=== PATIENT | male | born 1970 | race Two or more races ===

== ENCOUNTER 2017-11-19 05:41 | Inpatient (IN) | payer BC ==
[~2017-11-19] VITALS: Ht 180.3 cm; Wt 111.1 kg
[2017-11-19] VITALS (10 sets, daily range): BP systolic 104–113; BP diastolic 59–69
[2017-11-19] MEDS ORDERED: CEFAZOLIN SODIUM/DEXTROSE,ISO 50 ML IV ONE (06:25)
[2017-11-19] MEDS ORDERED: HYDROMORPHONE INJ 2 MG/ML DISP.SYRIN ONE (06:52)
[2017-11-19] MEDS ORDERED: MIDAZOLAM HCL 2 MG/2ML VIAL ONE (06:52)
[2017-11-19] MEDS ORDERED: SUCCINYLCHOLINE CHLORIDE 20 MG/ML VIAL ONE (06:52)
[2017-11-19] MEDS ORDERED: ANESTHESIA TRAY IN PYXIS 1 EA TRAY MC ONE (06:55)
[2017-11-19] MEDS ORDERED: BACITRACIN 50000 UNITS/VIAL ONE (06:55)
[2017-11-19] MEDS ORDERED: MORPHINE SULFATE/PF 10 MG/10ML (1MG/ML) AMPUL ONE (07:02)
[2017-11-19] MEDS ORDERED: TRANEXAMIC ACID 3,000 MG in SODIUM CHLORIDE IRRIG SOLUTION 70 ML IR ONE (07:30)
--- NOTE | 2017-11-19 09:45 | NUR ---
RN MS ADMISSION INITIAL NOTES PATIENT ARRIVED ON MS 3W AT 0945. A/O X4, RESPIRATIONS ARE EVEN AND UNLABORED, NOT IN ANY ACUTE DISTRESS NOTED. VITAL SIGNS ARE WNL. DENIES ANY PAIN AT THIS TIME. ABDOMEN IS SOFT AND NONDISTENDED. DENIES BLADDER DISCOMFORT. CURRENTLY HAS A TRUJILLO CATH AND URINE IS DRAINING FREELY, FREE OF KINKS. URINE IS CLEAR/YELLOW. DENIES ANY PAIN AT THIS TIME. S/P SURGERY RIGHT HIP ARTHROPLASTY. ADRIANE NOTED TO RIGHT HIP W/ DRESSING INTACT. ORDERS FOR WOUND NURSE TO DO INITIAL DRESSING CHANGE ON Friday11/21/17. PT IS FULL CODE. REGULAR DIET. PERIPHERAL IV ACCESS TO L WRIST, DRESSING IS KEPT CLEAN AND DRY AND INTACT. ABLE TO REPOSITION SELF AND REMINDED PT TO REPOSITION Q2HRS TO PREVENT PRESSURE INJURY. EDUCATED PT RE: THE USE OF CALL LIGHT WHEN ASSISTANCE IS NEEDED. ALL NEEDS MET AND RENDERED AT THIS TIME AND WILL CONTINUE TO MONITOR THROUGHOUT SHIFT.
[2017-11-19] MEDS ORDERED: OXYC-133 PO (10:12)
[2017-11-19] MEDS ORDERED: RIVA10TA PO (10:12)
[2017-11-19] MEDS ORDERED: MAGNESIUM HYDROXIDE 30 ML UDC PO PRN (13:00)
[2017-11-19] MEDS ORDERED: ONDANSETRON HCL/PF 4 MG/2 ML VIAL IVP PRN (13:00)
[2017-11-19] MEDS ORDERED: ZOLPIDEM TARTRATE 5 MG TABLET PO PRN (13:00)
[2017-11-19] MEDS ORDERED: MAG HYDROX/AL HYDROX/SIMETH 30 ML UDC PO PRN (13:00)
[2017-11-19] MEDS ORDERED: Z GUARD REMEDY 2 OZ OINT TP PRN (13:00)
[2017-11-19] MEDS ORDERED: HYDROCODONE/APAP 5/325MG 1 EACH TABLET PO PRN (13:00)
[2017-11-19] MEDS ORDERED: SENNOSIDES 8.6 MG TABLET PO PRN (14:00)
[2017-11-19] MEDS ORDERED: BISACODYL SUPP (10 MG) 10 MG/SUPP.RECT SUPP.RECT RC PRN (14:00)
[2017-11-19] MEDS ORDERED: DOCUSATE SODIUM 250 MG CAPSULE PO PRN (14:00)
[2017-11-19] MEDS: ANCEF 1 GM/50 ML D5W IV SCH ×4 (15:53→22:35)
[2017-11-19] MEDS: IV LR 1000 ML 1,000 ML IV PRN (15:54)
[2017-11-19] MEDS ORDERED: diphenhydrAMINE HCL 25 MG CAPSULE PO PRN (16:00)
[2017-11-19] MEDS ORDERED: CLONIDINE HCL 0.1 MG TABLET PO PRN (16:00)
[2017-11-19] MEDS ORDERED: MENTHOL/CETYLPYRD (CEPACOL) 1 LOZ LOZENGE PO PRN (16:00)
[2017-11-19] MEDS ORDERED: ONDANSETRON HCL/PF 4 MG/2 ML VIAL IV PRN (16:00)
[2017-11-19] MEDS ORDERED: MORPHINE SULFATE INJ 4 MG/ML DISP.SYRIN IM PRN (16:00)
--- NOTE | 2017-11-19 18:30 | NUR ---
RN CLOSING NOTES ALL NEEDS MET AND RENDERED. PT REMAINS A/O X4, RESPIRATIONS ARE EVEN AND UNLABORED. DENIES ANY PAIN AT THIS TIME. DRESSING TO RIGHT HIP INTACT, KEPT CLEAN AND DRY. PERIPHERAL IV TO LEFT WRIST W/ LR RUNNING AT 100ML/HR. REMINDED PT TO USE CALL LIGHT WHEN ASSISTANCE IS NEEDED, CALL LIGHT IS LEFT WITHIN REACH. WILL ENDORSE TO NEXT SHIFT FOR CONTINUITY OF CARE.
--- NOTE | 2017-11-19 20:00 | NUR ---
MS/RN OPENING NOTES PATIENT IN BED, ALERT, ORIENTED X3, ABLE TO VERBALIZE NEEDS. RESPIRATIONS EVEN AND UNLABORED, SKIN WARM TO TOUCH, DENIES PAIN, BUT REQUIRE COLD COMPRESS ON RIGHT HIP. FAMILY AT BEDSIDE. CALL LIGHTS WITHIN REACH.RECEIVE REPORT FROM AM RN FOR FABIAN. WILL CONTINUE TO MONITOR. BED IN LOCK POSITION.
[2017-11-19] MEDS: PANTOPRAZOLE 40 MG TABLET.DR PO SCH (21:29)
[2017-11-20] MEDS: IV LR 1000 ML 1,000 ML IV PRN ×2 (04:38→16:26)
--- NOTE | 2017-11-20 04:59 | NUR ---
ms/rn notes incentive spirometer teaching provided, able to use spirometer and demonstrated the correct method of use. Patient verbalize to have angeles be removed to day after breakfast.
--- NOTE | 2017-11-20 06:03 | NUR ---
ms/rn notes Dr. Goldsmith called for patient status informed patient with no pain and able to sleep during the night. No new order.
--- NOTE | 2017-11-20 06:27 | NUR ---
MS/RN NOTES Patient able to sleep during the night. Respiration even and unlabored. Denies pain. No guarding and no grimace. Skin warm to touch, Provided incentive spirometer and able to demonstrate proper use. Fluids provided and on iv LR at 100ml/hr. Left wrist gauge20. On angeles cathteter draining dark colored urine. bed in lock position.
[2017-11-20 07:48] LABS: BASOPHILS % (AUTO) 0.2 % (0.0-2.0); EOSINOPHILS % (AUTO) 0.6 % (0.0-6.0); HEMATOCRIT 33 % (39-51); HEMOGLOBIN 11.1 g/dL (13.5-17.5); LYMPHOCYTES # (AUTO) 1.7 /CMM (0.8-4.8); LYMPHOCYTES % (AUTO) 26.7 % (20.0-44.0); MEAN CORPUSCULAR HEMOGLOBIN 30 PG (26.0-33.0); MEAN CORPUSCULAR HGB CONC 34 g/dl (31.0-36.0); MEAN CORPUSCULAR VOLUME 88 fL (80-96); MONOCYTES # (AUTO) 0.8 /CMM (0.1-1.30); MONOCYTES % (AUTO) 12.3 % (2.0-12.0); NEUTROPHILS # (AUTO) 3.8 /CMM (1.8-8.9); NEUTROPHILS % (AUTO) 60.2 % (43.0-81.0); PLATELET COUNT (AUTO) 209 /CMM (150-450); RDW COEFFICIENT OF VARIATION 15.4 (11.5-15.0); RED BLOOD CELL COUNT(AUTO) 3.73 MIL/uL (4.5-6.0); WHITE BLOOD COUNT (AUTO) 6.3 K/uL (4.3-11.0)
[2017-11-20 07:55] LABS: ALBUMIN 2.9 g/dL (3.4-5.0); BILIRUBIN,TOTAL 0.3 mg/dL (0.2-1.0); CALCIUM, SERUM 8.5 mg/dL (8.5-10.1); CREATININE 1.3 mg/dL (0.6-1.3); PHOSPHORUS 3.8 mg/dL (2.5-4.9); POTASSIUM 3.7 mmol/L (3.5-5.1)
[2017-11-20 08:00] VITALS: BP 103/67
--- NOTE | 2017-11-20 08:00 | NUR ---
MS RN OPENING NOTES PATIENT IN BED ALERT ORIENTED X4. NO SOB NOTED. NO SIGN OF DISTRESS NOTED. BREATHING EVEN AND UNLABORED. SKIN IS SOFT AND WARM TO TOUCH. LEFT WRIST IV ACCESS INTACT AND PATENT , NO REDNESS OR SWELLING NOTED. SAFETY PRECAUTION IMPLEMENTED. CALL LIGHT PLACE WITHIN EASY REACH. WILL CONTINUE TO MONITOR ACCORDINGLY.
[2017-11-20] MEDS: oxyCODONE IR immediate release 5 MG CAPSULE PO PRN ×4 (08:19→21:55)
[2017-11-20] MEDS: RIVAROXABAN 10 MG TABLET PO SCH (08:20)
[2017-11-20 10:00] VITALS: BP_SYST 103; BP_SYST 105; BP_SYST 99; BP_DIAS 56; BP_DIAS 60; BP_DIAS 67; BP_DIAS 75
--- NOTE | 2017-11-20 10:00 | NUR ---
PT WALKED WITH P.T.AND TOOK TWO STEPS AND COMPLAINED OF DIZZINESS.PT'S ORTHO V/S TAKEN AND CHECKED.
--- NOTE | 2017-11-20 13:44 | NUR ---
REMOVED TRUJILLO CATHETER WITH 400 ML URINE OUTPUT-PT TOLERATED WELL.NO BLEEDING NOTED.
[2017-11-20 16:00] VITALS: BP 103/54
[2017-11-20] MEDS ORDERED: RIVAROXABAN 10 MG TABLET PO SCH (17:00)
--- NOTE | 2017-11-20 18:17 | NUR ---
MS RN CLOSING NOTES PATIENT IN BED ALERT ORIENTED X4 AT BEDSIDE. NO SOB , NO ACUTE DISTRESS NOTED. BREATHING REGULAR AND UNLABORED. DENIED ANY PAIN AT THIS TIME, NO FACIAL GRIMACING NOTED. IV ACCES ON LEFT WRIST INTACT AND PATENT, NO REDNESS OR SWELLING NOTED. ABDUCTOR PILLOW IN PLACE. DUE MEDICATIONS GIVEN, NO ASE NOTED. NEEDS ATTENDED AND ANTICIPATED. CALL LIGHT WITHIN REACH. SAFETY MEASURES IN PLACE. WILL CONTINUE TO MONITOR AND ENDORSE TO [facility] FOR THE CONTINUITY OF CARE.
[2017-11-20 20:00] VITALS: BP 108/64
[2017-11-20] MEDS: PANTOPRAZOLE 40 MG TABLET.DR PO SCH (21:54)
--- NOTE | 2017-11-20 22:15 | NUR ---
POD#1 s/p Right total hip arthroplasty.Patient lives with spouse in a .pj with ramp and elevator. Prior to admission, he was ambulatory and independent with adl's., Has no DME or homehealth reported. Patient has good family support. He prefer to return home with home PT/ homehealth once discharge. Addendum: 11/20/17 at 4345 by XUAN ARRIAGA RN Amended: Links added.
[2017-11-21] MEDS: IV LR 1000 ML 1,000 ML IV PRN ×2 (02:05→13:12)
[2017-11-21] MEDS: oxyCODONE IR immediate release 5 MG CAPSULE PO PRN ×6 (04:27→20:41)
[2017-11-21 07:21] LABS: BASOPHILS % (AUTO) 0.3 % (0.0-2.0); EOSINOPHILS # (AUTO) 0.1 /CMM (0.0-0.7); EOSINOPHILS % (AUTO) 1.5 % (0.0-6.0); HEMATOCRIT 30 % (39-51); HEMOGLOBIN 10.2 g/dL (13.5-17.5); LYMPHOCYTES # (AUTO) 2.2 /CMM (0.8-4.8); LYMPHOCYTES % (AUTO) 27.7 % (20.0-44.0); MEAN CORPUSCULAR HEMOGLOBIN 30 PG (26.0-33.0); MEAN CORPUSCULAR HGB CONC 34 g/dl (31.0-36.0); MEAN CORPUSCULAR VOLUME 88 fL (80-96); MONOCYTES # (AUTO) 0.9 /CMM (0.1-1.30); NEUTROPHILS # (AUTO) 4.6 /CMM (1.8-8.9); NEUTROPHILS % (AUTO) 59.5 % (43.0-81.0); PLATELET COUNT (AUTO) 202 /CMM (150-450); RDW COEFFICIENT OF VARIATION 15.2 (11.5-15.0); RED BLOOD CELL COUNT(AUTO) 3.45 MIL/uL (4.5-6.0); WHITE BLOOD COUNT (AUTO) 7.8 K/uL (4.3-11.0)
[2017-11-21 07:44] LABS: CALCIUM, SERUM 8.4 mg/dL (8.5-10.1); CREATININE 1.2 mg/dL (0.6-1.3); MAGNESIUM 1.8 mg/dL (1.8-2.4); PHOSPHORUS 3.5 mg/dL (2.5-4.9); POTASSIUM 4.1 mmol/L (3.5-5.1)
[2017-11-21] MEDS: ACETAMINOPHEN 325 MG TABLET PO PRN ×2 (07:44→14:38)
[2017-11-21 08:00] VITALS: BP 111/74
[2017-11-21] MEDS: RIVAROXABAN 10 MG TABLET PO SCH (08:00)
--- NOTE | 2017-11-21 08:00 | NUR ---
RN NOTES RECEIVED PT. PT IS STABLE AND RESTING IN BED, A/OX3. NO S/S OF RESPIRATORY DISTRESS OR SOB. PT IS ON RA WITH O2SAT WNL. PT HAS C/O MILD PAIN 6-7/10 LOCATED ON RIGHT SIDE OF HIP. SURGICAL INCISION NOTED ON RIGHT SIDE HIP. IV ACCESS LOCATED ON LEFT WRIST 20G INFUSING LR AT 100 ML/HR. PT'S TEMP ELEVATED AT 100.2, WILL ADDRESS WITH PRN TYLENOL AND F/U FOR MEDICATION EFFECTIVENESS. SAFETY MEASURES IN PLACE, CALL LIGHT WITHIN REACH. WILL CONTINUE TO MONITOR.
--- NOTE | 2017-11-21 10:00 | NUR ---
RN NOTES PRN TYLENOL GIVEN FOR ELEVATED TEMP. RETAKE RESULTED IN TEMP OF 98.4. WILL CONTINUE TO MONITOR.
[2017-11-21 16:00] VITALS: BP 110/70
--- NOTE | 2017-11-21 18:38 | NUR ---
RN CLOSING NOTES PT IS IN BED RESTING. A/OX4. NO S/S OF RESPIRATORY DISTRESS OR SOB. NO C/O PAIN AT THIS TIME. OXY IR GIVEN AT APPROXIMATELY 1745. PT CLEARED BY ORTHO. PER VIMAL NG AND PT, PT TO BE DC TOMORROW. PT REQUIRES BED SIDE COMMODE FOR HOME USE. ALL PT NEEDS ANTICIPATED AND MET. SAFETY MEASURES IN PLACE, CALL LIGHT WITHIN REACH. WILL ENDORSE TO LOBSTER CATCHER FOR FABIAN.
--- NOTE | 2017-11-21 19:50 | NUR ---
MS RN NOTE: PATIENT RESTING IN BED, NO ACUTE DISTRESS NOTED, FAMILY AT BEDSIDE. BREATHING EVEN AND UNLABORED, NO SOB NOTED. IV TO LFA IN PLACE. BED LOCKED AND IN LOWEST POSITION, CALL LIGHT IN REACH. WILL CONTINUE TO MONITOR.
[2017-11-21 20:00] VITALS: BP 116/71
--- NOTE | 2017-11-21 20:45 | NUR ---
MS RN NOTE: PATIENT COMPLAINS OF PAIN TO RIGHT HIP 06/09, OXY IR 10MG ORAL GIVEN PER MD ORDER. WILL CONTINUE TO MONITOR.
[2017-11-21] MEDS: PANTOPRAZOLE 40 MG TABLET.DR PO SCH (21:06)
[2017-11-22] MEDS: oxyCODONE IR immediate release 5 MG CAPSULE PO PRN ×3 (01:10→09:00)
--- NOTE | 2017-11-22 04:30 | NUR ---
MS RN NOTE: PATIENT COMPLAINS OF PAIN TO RIGHT HIP 06/09, OXY IR 10MG ORAL GIVEN PER MD ORDER. WILL CONTINUE TO MONITOR.
--- NOTE | 2017-11-22 06:15 | NUR ---
MS RN NOTE: PATIENT RESTING IN BED, NO ACUTE DISTRESS NOTED. BREATHING EVEN AND UNLABORED, NO SOB NOTED. IV TO LFA IN PLACE. BED LOCKED AND IN LOWEST POSITION, CALL LIGHT IN REACH. WILL ENDORSE TO DAY NURSE TO CONTINUE WITH PLAN OF CARE.
--- NOTE | 2017-11-22 07:30 | NUR ---
RECEIVED PT. IN AM ALERT AND ORIENTED X4.RT. HIP DRSG DRY AND INTACT.
[2017-11-22 08:00] VITALS: BP 115/67
[2017-11-22 08:11] LABS: BASOPHILS % (AUTO) 0.3 % (0.0-2.0); EOSINOPHILS # (AUTO) 0.3 /CMM (0.0-0.7); EOSINOPHILS % (AUTO) 3.6 % (0.0-6.0); HEMATOCRIT 33 % (39-51); HEMOGLOBIN 11.1 g/dL (13.5-17.5); LYMPHOCYTES # (AUTO) 2.1 /CMM (0.8-4.8); LYMPHOCYTES % (AUTO) 28.8 % (20.0-44.0); MEAN CORPUSCULAR HEMOGLOBIN 30 PG (26.0-33.0); MEAN CORPUSCULAR HGB CONC 34 g/dl (31.0-36.0); MEAN CORPUSCULAR VOLUME 88 fL (80-96); MONOCYTES # (AUTO) 0.9 /CMM (0.1-1.30); MONOCYTES % (AUTO) 12.2 % (2.0-12.0); NEUTROPHILS # (AUTO) 3.9 /CMM (1.8-8.9); NEUTROPHILS % (AUTO) 55.1 % (43.0-81.0); PLATELET COUNT (AUTO) 214 /CMM (150-450); RDW COEFFICIENT OF VARIATION 15.1 (11.5-15.0); RED BLOOD CELL COUNT(AUTO) 3.77 MIL/uL (4.5-6.0); WHITE BLOOD COUNT (AUTO) 7.2 K/uL (4.3-11.0)
[2017-11-22 08:29] LABS: CALCIUM, SERUM 8.8 mg/dL (8.5-10.1); CREATININE 1.3 mg/dL (0.6-1.3); MAGNESIUM 2.1 mg/dL (1.8-2.4)
--- NOTE | 2017-11-22 09:00 | NUR ---
MED. FOR PAIN WITH OXY-IR.
[2017-11-22] MEDS: RIVAROXABAN 10 MG TABLET PO SCH (09:03)
--- NOTE | 2017-11-22 13:50 | NUR ---
MYA NG IN ORDERS GIVEN FOR DISCH,ALL INFO TO .PT. HAS RXS FOR XARELTO AND PAIN MED FOR HOME USE.ESTABLISHED HAS ALL BELONGINGS. TAKEN TO LOBBY FOR DC VIA W/C ACC. BY GAS MAKER HELPER AND .ADDITIONALLY PT. SUPPLIED WITH [facility] AND HOME HEALTH TO FOLLOW UP
== END 2017-11-22 13:50 | disposition home or self-care (01) | DRG 470 ==
LOC: DS 05:41 → MED 09:29
PROVIDERS: ADMIT Specialist; ATTEND Internal Medicine
PROC: 0SR901Z Replacement of Right Hip Joint with Metal Synthetic Substitute, Open Approach (ICD-10-PCS; principal; 2017-11-19 08:10)
DX: M16.11 Unilateral primary osteoarthritis, right hip (principal); E44.1 Mild protein-calorie malnutrition; E78.5 Hyperlipidemia, unspecified; E66.9 Obesity, unspecified; Z68.34 Body mass index [BMI] 34.0-34.9, adult; Z96.651 Presence of right artificial knee joint; Z82.49 Family history of ischemic heart disease and other diseases of the circulatory system; Z83.3 Family history of diabetes mellitus; Z82.3 Family history of stroke
CPT/HCPCS: 36415; 80048-TC; 80053-TC; 80061-TC; 83735-TC; 84100-TC; 85025-TC; 86850-TC; 86921-TC; 87081-TC; 97116-TC; 97530-TC; A4217; A6209; A6402; J0330; J0690; J1100; J1170; J1885; J2250; J2274; J2405; J2704; J3490; J7060; J7120